=== PATIENT | female | born 1960 | race Caucasian/White ===

== ENCOUNTER 2022-02-12 17:10 | Emergency (ER) | payer BC ==
[~2022-02-12] VITALS: Ht 167.6 cm; Wt 104.3 kg
[2022-02-12 17:32] VITALS: BP_SYST 139
[2022-02-12] MEDS ORDERED: HYDR-3927 PO (18:54)
[2022-02-12] MEDS ORDERED: IBUPROFEN 800 MG TABLET PO ONE (19:00)
[2022-02-12] MEDS ORDERED: HYDROcodone/ACETAMIN 10-325 MG TAB PO ONE (19:00)
[2022-02-12 20:53] VITALS: BP_SYST 145
== END 2022-02-12 19:48 | disposition home or self-care (01) ==
LOC: SED 17:10
DX: S52.502A Unspecified fracture of the lower end of left radius, initial encounter for closed fracture (principal); Z79.899 Other long term (current) drug therapy; W01.198A Fall on same level from slipping, tripping and stumbling with subsequent striking against other object, initial encounter; Y93.89 Activity, other specified; Y92.89 Other specified places as the place of occurrence of the external cause; Y99.8 Other external cause status
CPT/HCPCS: 73140-TC; 99284